=== PATIENT | female | born 1990 | race Caucasian/White ===

== ENCOUNTER 2021-05-28 14:45 | Emergency (ER) | payer BC, SELFPAY ==
[2021-05-28 15:03] VITALS: BP 108/55; PULSE 86; RESP 20; TEMP 36.4; O2SAT 100
[2021-05-28 17:23] VITALS: BP 100/45; PULSE 89; RESP 14; O2SAT 100
--- NOTE | 2021-05-28 18:08 | ED.GENADULT ---
HPI - General Adult General Chief complaint: Abdominal Pain Stated complaint: Very sick, and I have a hernia Time Seen by Provider: 05/28/21 17:20 History of Present Illness HPI narrative: Patient is a 31-year-old female who presents ER with multiple issues. First issue is that she went to see her OB today. Upon arriving at the office she was told that the OB no longer works there and that they did not have any follow-up scheduled for. She is 26 weeks along. She is a G9, P4 SAB 4. She reports she has a partial placenta previa. No vaginal bleeding or discharge or leakage of fluid. She is feeling the baby move. She would like referral to a new inseam trimmer. Patient also reports that around her umbilicus she feels a little fat hernia that she occasionally has to push back in. No difficulty with having a bowel movement. No vomiting. Patient also reports that she has sinus congestion with cough over the last few days. No loss of taste or smell. She is properly vaccinated against Covid and has had no known exposures. Review of Systems Review of Systems: All systems reviewed & are unremarkable except as noted in HPI and below Constitutional: Constitutional: Denies chills, Denies fever(s) and Denies weakness ENT: Reports nasal congestion and Denies sore throat Respiratory: Respiratory: Reports cough, Denies dyspnea and Denies wheezing Gastrointestinal: Gastrointestinal: Denies abdominal pain, Denies diarrhea, Denies nausea and Denies vomiting Genitourinary: Genitourinary: Denies abnormal vaginal bleeding, Denies dysuria, Denies flank pain and Denies vaginal discharge PMFSH Past Medical History Medical History (Updated 05/28/21 @ 18:13 by Gabriel Valles MD) Healthy female adult Surgical History Surgical History (Updated 05/28/21 @ 18:11 by Gabriel Valles MD) No pertinent past surgical history Social History Social History (Updated 05/28/21 @ 18:11 by Gabriel Valles MD) Smoking status: Current every day smoker Exam Narrative: GENERAL: Well-appearing, well-nourished, and in no acute distress. HEAD: Normocephalic, atraumatic. CHEST: Clear to auscultation. No respiratory distress. HEART: Regular rate and rhythm. Normal peripheral pulses. ABDOMEN: Soft, nontender, nondistended. Small hernia near the umbilicus that has fat protruding that is reproducible. Nontender. Gravid uterus just above the umbilicus. EXTREMITIES: Normal range of motion. No edema. SKIN: Warm, dry, no rash. NEURO: Alert and oriented x3. PSYCH: Normal mood and affect. Course Course Emergency Course: Normal lung sounds. Symptoms consistent with URI. Do not feel chest x-ray indicated. Discharge home. Vital Signs Vital signs: Vital Signs Temperature 97.5 F L 05/28/21 15:03 Pulse Rate 86 05/28/21 15:03 Respiratory Rate 20 05/28/21 15:03 Blood Pressure 108/55 L 05/28/21 15:03 Pulse Oximetry 100 05/28/21 15:03 Temperature 97.5 F L 05/28/21 15:03 Pulse Rate 89 05/28/21 17:23 Respiratory Rate 14 05/28/21 17:23 Blood Pressure 100/45 L 05/28/21 17:23 Pulse Oximetry 100 05/28/21 17:23 Medical Decision Making Vital Signs Vital Signs: Vital Signs Temperature 97.5 F L 05/28/21 15:03 Pulse Rate 86 05/28/21 15:03 Respiratory Rate 20 05/28/21 15:03 Blood Pressure 108/55 L 05/28/21 15:03 Pulse Oximetry 100 05/28/21 15:03 Temperature 97.5 F L 05/28/21 15:03 Pulse Rate 89 05/28/21 17:23 Respiratory Rate 14 05/28/21 17:23 Blood Pressure 100/45 L 05/28/21 17:23 Pulse Oximetry 100 05/28/21 17:23 Discharge Plan Discharge Clinical Impression: URI (upper respiratory infection) Patient Disposition: Home, Self-Care Condition: Stable Instructions: Upper Respiratory Infection (ED) Additional Instructions: Return the ER if you have leakage of fluid from the vagina, you have new vaginal bleeding, you develop fever over 100.4 ?F, you have additional concerns. Follow-up/Referral
== END 2021-05-28 18:23 | disposition home or self-care (01) ==
PROVIDERS: Emergency Provider Emergency Medicine
DX: O99.512 Diseases of the respiratory system complicating pregnancy, second trimester (principal); J06.9 Acute upper respiratory infection, unspecified; O44.22 Partial placenta previa NOS or without hemorrhage, second trimester; O99.612 Diseases of the digestive system complicating pregnancy, second trimester; K42.9 Umbilical hernia without obstruction or gangrene; O99.332 Smoking (tobacco) complicating pregnancy, second trimester; F17.200 Nicotine dependence, unspecified, uncomplicated; Z3A.26 26 weeks gestation of pregnancy
CPT/HCPCS: 99281

== ENCOUNTER 2022-07-08 16:40 | Emergency (ER) | payer OTHER, SELFPAY ==
[2022-07-08 17:26] VITALS: BP 105/72; PULSE 112; RESP 14; TEMP 38.8; O2SAT 99
== END 2022-07-08 18:05 | disposition left against medical advice (07) ==
LOC: EXPBETH 16:44
PROVIDERS: Emergency Provider Nurse Practitioner
DX: R50.9 Fever, unspecified (principal); R11.10 Vomiting, unspecified
CPT/HCPCS: 87804; 99199